=== PATIENT | female | born 1970 | race Caucasian/White ===

== ENCOUNTER → 2018-06-15 12:17 | Outpatient (CLI) | payer OTHER, MEDICAID, SELFPAY ==
[2018-06-15 15:04] LABS: CRP 2.98 mg/L (0.0-3.0)
[2018-06-16 20:07] LABS: Endomysial Antibody IgA Negative (Negative)
[2018-06-17 11:35] LABS: Immunoglobulin A 167 mg/dL (87-352); t-Transglutaminase IgA <2 U/mL (0-3)
== END ==
PROVIDERS: Family Provider Family Medicine; PCP Family Medicine; Visit Provider Internal Medicine Gastroenterology
DX: R19.7 Diarrhea, unspecified (principal)
CPT/HCPCS: 36415; 82784; 83516; 86140; 86255